=== PATIENT | female | born 1945 | race African-American/Black ===

== ENCOUNTER → 2016-05-11 | Outpatient (CLI) | payer OTHER ==
[~2016-05-11] MED LIST: /CLON1TA; /FENO48TA; AMLO10TAB; ASPI81TA63; AVAP300T; BABY81CH; CALC12502; CATA0.1T; CATA0.3D TD; CATA0.3T; CLON0.2T; DIGO0.126; DIOV160T5; DIOV320T OR; FURO40TA2; GLUC1000; GLUC500T; GLUC850T; HUMA75VL SC; INSULANT; K-TA10TA; K-TA10TA OR; LASI40TA; LEVA250T; LOPR100T OR; LOPR50TA; METF500T4; METOPROLOL TARTRATE; MINOXIDIL OR; NORV5TAB; OYST500T76; PIROPOW2; PLAV75TA2; POTASSIUM; TRIC145T19; VITA100T OR; WELCHOL; [UNRECOGNIZED DRUG - OTHER]; [UNRECOGNIZED DRUG - OTHER]; levamir SQ; tricor; vit PO
[2016-05-11 17:53] LABS: CALCIUM LEVEL 9.5 MG/DL (8.8-10.2); CREATININE FOR GFR 1.94 MG/DL (0.55-1.02); GLOMERULAR FILTRATION RATE 32.6 (>39); POTASSIUM SERUM 4.2 MEQ/L (3.5-5.1)
== END ==
LOC: M WUC 14:05
PROVIDERS: ATTEND Nurse Practitioner Family
DX: N18.3 Chronic kidney disease, stage 3 (moderate) (principal)